=== PATIENT | male | born 1930 | race Caucasian/White ===

== ENCOUNTER 2017-03-23 13:40 | Emergency (ER) | payer MEDICARE, BC ==
[2017-03-23 14:01] VITALS: BP 120/68
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
== END 2017-03-23 14:08 | disposition home or self-care (01) ==
LOC: UCEAST 13:40
DX: H92.01 Otalgia, right ear (principal); Z87.891 Personal history of nicotine dependence
CPT/HCPCS: 99212; G0463